=== PATIENT | female | born 1955 | race African-American/Black ===

== ENCOUNTER 2019-01-05 10:37 | Emergency (ER) | payer MEDICARE, OTHER ==
[~2019-01-05] VITALS: Ht 157.5 cm; Wt 63.6 kg
[~2019-01-05 10:37] MED LIST: AMLO-511 PO; ASPI-556 PO; FOLI0.4T91 PO; HYDR25CA PO; INSLAN SQ; INSU100C3 SQ; LISI-661 PO; SIMV20TA6 PO; VITAD400 PO; ZIPR80CA2 PO
[2019-01-05 10:54] LABS: GLUCOSE,POINT OF CARE 335 MG/DL (70-110)
[2019-01-05] MEDS ORDERED: CEPHALEXIN MONOHYDRATE 500 MG CAPSULE PO ONE (12:30)
[2019-01-05 13:42] VITALS: BP 145/75
[2019-01-05] MEDS ORDERED: ACETAMINOPHEN 325 MG TABLET PO ONE (13:45)
== END 2019-01-05 14:34 | disposition home or self-care (01) ==
LOC: EMS 10:40
DX: L03.811 Cellulitis of head [any part, except face] (principal); E11.65 Type 2 diabetes mellitus with hyperglycemia; E78.00 Pure hypercholesterolemia, unspecified; I10 Essential (primary) hypertension; J45.909 Unspecified asthma, uncomplicated; M19.90 Unspecified osteoarthritis, unspecified site; F20.9 Schizophrenia, unspecified; F17.210 Nicotine dependence, cigarettes, uncomplicated; F12.90 Cannabis use, unspecified, uncomplicated; Z86.19 Personal history of other infectious and parasitic diseases; Z90.710 Acquired absence of both cervix and uterus; Z79.899 Other long term (current) drug therapy

== ENCOUNTER 2019-01-20 11:38 | Emergency (ER) | payer MEDICARE, OTHER ==
[~2019-01-20] VITALS: Ht 157.5 cm; Wt 68.2 kg
[~2019-01-20 11:38] MED LIST changes: -LISI-661 PO
[2019-01-20 12:05] LABS: GLUCOSE,POINT OF CARE 223 MG/DL (70-110)
[2019-01-20 12:50] VITALS: BP 142/97
== END 2019-01-20 13:33 | disposition home or self-care (01) ==
LOC: EMS 11:43
DX: L98.9 Disorder of the skin and subcutaneous tissue, unspecified (principal); I10 Essential (primary) hypertension; E11.9 Type 2 diabetes mellitus without complications; E78.00 Pure hypercholesterolemia, unspecified; M19.90 Unspecified osteoarthritis, unspecified site; F12.90 Cannabis use, unspecified, uncomplicated; F17.210 Nicotine dependence, cigarettes, uncomplicated; F20.9 Schizophrenia, unspecified; Z86.19 Personal history of other infectious and parasitic diseases; Z90.710 Acquired absence of both cervix and uterus; Z79.899 Other long term (current) drug therapy; Z79.4 Long term (current) use of insulin; Z79.82 Long term (current) use of aspirin

== ENCOUNTER 2019-08-28 09:12 | Emergency (ER) | payer MEDICARE, OTHER ==
[~2019-08-28] VITALS: Ht 157.5 cm; Wt 59.1 kg
[~2019-08-28 09:12] MED LIST changes: -AMLO-511 PO; +AMLO10TA7 PO; +AMLO5TAB9 PO; +ASPI81TA40 PO; +CHOL400T56 PO; +FOLI1 PO; +GEMF600T89 PO; +INSU100V SQ; +LEVAHFA IH; +OMEP20 PO; +POTA10TA14 PO; +SIMV-260 PO; +SIMV-43 PO; -SIMV20TA6 PO; +SITA100 PO; -VITAD400 PO
[2019-08-28 09:28] LABS: GLUCOSE,POINT OF CARE 274 MG/DL (70-110)
[2019-08-28] MEDS ORDERED: KETOROLAC TROMETHAMINE 30 MG/ML VIAL IM ONE (12:00)
[2019-08-28] MEDS ORDERED: TRAZ-252 PO (12:05)
[2019-08-28] MEDS ORDERED: LISI-618 PO (12:05)
[2019-08-28] MEDS ORDERED: DULA0.75 SQ (12:05)
[2019-08-28] MEDS ORDERED: INSU100V SQ (12:05)
[2019-08-28] MEDS ORDERED: IPRA4AER IH (12:05)
[2019-08-28] MEDS ORDERED: BUSP5TAB20 PO (12:05)
[2019-08-28] MEDS ORDERED: METO-558 PO (12:05)
[2019-08-28] MEDS ORDERED: KDUR10 PO (12:05)
[2019-08-28 12:26] VITALS: BP 136/86
== END 2019-08-28 12:30 | disposition home or self-care (01) ==
LOC: EMS 09:17
DX: L02.811 Cutaneous abscess of head [any part, except face] (principal); I12.0 Hypertensive chronic kidney disease with stage 5 chronic kidney disease or end stage renal disease; E11.22 Type 2 diabetes mellitus with diabetic chronic kidney disease; N18.6 End stage renal disease; J45.909 Unspecified asthma, uncomplicated; E78.00 Pure hypercholesterolemia, unspecified; F17.210 Nicotine dependence, cigarettes, uncomplicated; F12.90 Cannabis use, unspecified, uncomplicated; F20.9 Schizophrenia, unspecified; Z99.2 Dependence on renal dialysis; Z90.710 Acquired absence of both cervix and uterus; Z79.82 Long term (current) use of aspirin; Z79.4 Long term (current) use of insulin
CPT/HCPCS: 82962; 96372; 99284; J1885

== ENCOUNTER 2020-01-22 18:09 | Inpatient (IN) | payer MEDICARE, MEDICAID ==
[~2020-01-22] VITALS: Ht 170.2 cm; Wt 59.4 kg
[~2020-01-22 18:09] MED LIST changes: -AMLO5TAB9 PO; +ASPI-1111 PO; -ASPI-556 PO; -ASPI81TA40 PO; +BUSP5TAB20 PO; -CHOL400T56 PO; +DULA0.75 SQ; +FOLI-130 PO; -FOLI0.4T91 PO; -FOLI1 PO; -GEMF600T89 PO; -INSU100C3 SQ; +IPRA4AER IH; +LACT30L PO; -LEVAHFA IH; +LISI-618 PO; +METO-558 PO; +MULT-1203 PO; -POTA10TA14 PO; +RIFAX550 PO; +SEVE800T17 PO; -SIMV-260 PO; -SITA100 PO; +THIA100T80 PO; +TRAZ-252 PO
[2020-01-22 19:51] LABS: BASOPHILS % (AUTO) 1.1 % (0.0-2.0); EOSINOPHILS % (AUTO) 1.5 % (1.0-6.0); HEMATOCRIT 37.5 % (36-46); LYMPHOCYTES % (AUTO) 11.1 % (22.0-44.0); MEAN CORPUSCULAR HEMOGLOBIN 32.3 pg (26.0-34.0); MEAN CORPUSCULAR HGB CONC 32.2 G/dL (31.0-37.0); MEAN CORPUSCULAR VOLUME 101 fL (80-100); MONOCYTES # (AUTO) 0.4 K/uL (0.1-1.0); MONOCYTES % (AUTO) 4.1 % (2.0-9.0); NEUTROPHILS # (AUTO) 7.8 K/uL (1.8-7.7); NEUTROPHILS % (AUTO) 82.2 % (40.0-70.0); PLATELET COUNT (AUTO) 267 K/uL (150-450); RED BLOOD CELL COUNT(AUTO) 3.73 MIL/uL (4.00-5.20); RED CELL DISTRIBUTION WIDTH 15.9 % (11.5-14.5)
[2020-01-22 19:56] LABS: ANION GAP 11 mmol/L (8-16); CALCIUM, TOTAL 9.1 mg/dL (8.8-10.5); CARBON DIOXIDE 26 mmol/L (22-29); CHLORIDE 94 mmol/L (98-107); CREATININE 6.46 mg/dL (0.60-1.30); GLOMERULAR FILTR. RATE CALC 8 mL/min (>60); GLUCOSE,RANDOM 264 mg/dL (70-110); POTASSIUM 5.8 mmol/L (3.5-5.1); SODIUM SERUM 131 mmol/L (136-145); UREA NITROGEN, BLOOD 59 mg/dL (7-18)
[2020-01-22 19:59] LABS: INR 1.1 (0.9-1.1); PROTHROMBIN TIME 10.9 SEC (9.4-11.6)
[2020-01-22 20:10] LABS: AMMONIA 30 umol/L (11-32); TROPONIN I < 0.02 ng/mL (0.00-0.05)
[2020-01-22 20:11] LABS: ALANINE AMINOTRANSFERASE 173 U/L (12-78); ALBUMIN 3.6 g/dL (3.4-5.0); ALKALINE PHOSPHATASE 153 U/L (46-116); ASPARTATE AMINOTRANSFERASE 209 U/L (15-37); BILIRUBIN,TOTAL 0.6 mg/dL (0.1-1.0); FREE T4 (FREE THYROXINE) 0.95 ng/dL (0.76-1.46); THYROID STIMULATING HORMONE 0.71 uIU/mL (0.36-3.74); TOTAL PROTEIN, SERUM 8.2 g/dL (6.4-8.2)
[2020-01-22] MEDS ORDERED: SODIUM POLYSTYRENE SULFONATE 15 GM/60 ML SUSPENSION BOTTLE PO ONE (20:15)
[2020-01-22 21:11] LABS: GLUCOSE,POINT OF CARE 203 MG/DL (70-110)
[2020-01-22] MEDS ORDERED: QUEtiapine FUMARATE 100 MG TABLET PO PRN (22:15)
[2020-01-22] MEDS ORDERED: ZOLPIDEM TARTRATE 10 MG TABLET PO PRN (22:15)
[2020-01-22] MEDS ORDERED: LORazepam 2 MG TABLET PO PRN (22:15)
[2020-01-22] MEDS ORDERED: CloNIDine HCL 0.1 MG TABLET PO PRN (22:30)
[2020-01-22] MEDS ORDERED: MAG HYDROX/AL HYDROX/SIMETH ES 30 ML SUSPENSION UDCUP PO PRN (22:30)
[2020-01-22] MEDS ORDERED: NICOTINE 14 MG/24 HOUR PATCH TD PRN (22:30)
[2020-01-22] MEDS ORDERED: IBUPROFEN 400 MG TABLET PO PRN (22:30)
[2020-01-22] MEDS ORDERED: DOCUSATE SODIUM 100 MG CAPSULE PO PRN (22:30)
[2020-01-22] MEDS ORDERED: LACTULOSE 20 GM/30 ML SOLUTION UDCUP PO PRN (22:30)
[2020-01-22] MEDS ORDERED: MAGNESIUM HYDROXIDE SUSPENSION 30 ML UDCUP PO PRN (22:30)
[2020-01-22] MEDS ORDERED: LOPERAMIDE HCL 2 MG CAPSULE PO PRN (22:30)
[2020-01-22] MEDS ORDERED: ALBUTEROL SULFATE HFA 90 MCG/PUFF 8 GM INHALER IH PRN (22:30)
[2020-01-22] MEDS ORDERED: ONDANSETRON HCL 4 MG TABLET PO PRN (22:30)
[2020-01-22] MEDS ORDERED: GuaiFENesin/D-METHORPHAN [SUGAR-FREE] 200-20MG/10 ML SYRUP UDCUP PO PRN (22:30)
[2020-01-22] MEDS ORDERED: PETROLATUM,WHITE 28 GM JELLY TP PRN (22:30)
[2020-01-23 02:25] VITALS: BP 189/77
[2020-01-23 02:51] VITALS: BP 189/77
[2020-01-23] MEDS ORDERED: PNEUMOCOCCAL VACCINE POLYVALENT 0.5 ML VIAL [PPSV23] IM ONE (04:45)
[2020-01-23 06:01] LABS: GLUCOMETER DEV NAME(LOC) 3E.I 2; GLUCOSE,POINT OF CARE 304 MG/DL (70-110)
[2020-01-23 06:15] VITALS: BP 146/65
[2020-01-23] MEDS: SEVELAMER CARBONATE 800 MG TABLET PO SCH ×3 (07:01→17:24)
[2020-01-23 08:53] VITALS: BP_SYST 90
[2020-01-23] MEDS: RIFAXIMIN 550 MG TABLET PO SCH ×2 (10:56→17:24)
[2020-01-23] MEDS: THIAMINE 100 MG TABLET PO SCH (10:57)
[2020-01-23] MEDS: OMEPRAZOLE 20 MG CAPSULE PO SCH ×2 (10:57→17:25)
[2020-01-23] MEDS: FOLIC ACID 1 MG TABLET PO SCH (10:57)
[2020-01-23] MEDS: SIMVASTATIN 20 MG TABLET PO SCH (10:57)
[2020-01-23] MEDS: AmLODIPine BESYLATE 10 MG TABLET PO SCH (10:57)
[2020-01-23] MEDS: LISINOPRIL 20 MG TABLET PO SCH ×2 (10:59→17:25)
[2020-01-23] MEDS: ASPIRIN 81 MG EC TABLET PO SCH (11:02)
[2020-01-23] MEDS ORDERED: LORazepam 2 MG/ML VIAL IVP ONE (13:30)
[2020-01-23 16:00] VITALS: BP 150/69
[2020-01-23] MEDS: BREXPIPRAZOLE 1 MG TABLET PO SCH (17:26)
[2020-01-23] MEDS: BusPIRone HCL 15 MG TABLET PO SCH (17:26)
[2020-01-23] MEDS ORDERED: LIDOCAINE/PF 1% 2 ML VIAL ONE (18:22)
[2020-01-23] MEDS ORDERED: DEXTROSE 50%-WATER 25 GM/50 ML SYRINGE IVP PRN (19:45)
[2020-01-23] MEDS: METOPROLOL SUCCINATE 50 MG ER TABLET PO SCH (20:55)
[2020-01-23] MEDS: TraZODone HCL 50 MG TABLET PO SCH (20:55)
[2020-01-23] MEDS: ACETAMINOPHEN 325 MG TABLET PO PRN ×2 (21:06→21:12)
[2020-01-23] MEDS: INSULIN LISPRO 100 UNITS/ML SQ PRN (21:07)
[2020-01-23] MEDS: INSULIN GLARGINE,HUM.REC.ANLOG 100 UNITS/ML SQ SCH (21:07)
[2020-01-23 21:14] LABS: GLUCOMETER DEV NAME(LOC) 3E.I 2; GLUCOSE,POINT OF CARE 279 MG/DL (70-110)
[2020-01-24 05:39] LABS: GLUCOMETER DEV NAME(LOC) 3E.I 2; GLUCOSE,POINT OF CARE 67 MG/DL (70-110)
[2020-01-24 05:57] LABS: GLUCOMETER DEV NAME(LOC) 3E.I 2; GLUCOSE,POINT OF CARE 82 MG/DL (70-110)
[2020-01-24] MEDS: SEVELAMER CARBONATE 800 MG TABLET PO SCH ×3 (06:35→16:26)
[2020-01-24 08:42] VITALS: BP 147/59
[2020-01-24] MEDS ORDERED: IBUPROFEN 400 MG TABLET PO PRN (09:15)
[2020-01-24] MEDS ORDERED: ACETAMINOPHEN 325 MG TABLET PO PRN (09:15)
[2020-01-24] MEDS: AmLODIPine BESYLATE 10 MG TABLET PO SCH (10:58)
[2020-01-24] MEDS: FOLIC ACID 1 MG TABLET PO SCH (10:58)
[2020-01-24] MEDS: LISINOPRIL 20 MG TABLET PO SCH ×2 (10:58→16:26)
[2020-01-24] MEDS: SIMVASTATIN 20 MG TABLET PO SCH (10:58)
[2020-01-24] MEDS: BREXPIPRAZOLE 1 MG TABLET PO SCH (10:58)
[2020-01-24] MEDS: RIFAXIMIN 550 MG TABLET PO SCH ×2 (10:58→16:26)
[2020-01-24] MEDS: ASPIRIN 81 MG EC TABLET PO SCH (10:58)
[2020-01-24] MEDS: THIAMINE 100 MG TABLET PO SCH (10:58)
[2020-01-24] MEDS: VITAMIN B COMP/VIT C/FOLIC ACID CAPSULE PO SCH (10:59)
[2020-01-24] MEDS: OMEPRAZOLE 20 MG CAPSULE PO SCH ×2 (11:02→16:26)
[2020-01-24] MEDS: TraMADol HCL 50 MG TABLET PO PRN (11:02)
[2020-01-24] MEDS: BusPIRone HCL 15 MG TABLET PO SCH ×2 (11:03→16:26)
[2020-01-24 11:58] LABS: GLUCOMETER DEV NAME(LOC) 3E.I 2; GLUCOSE,POINT OF CARE 158 MG/DL (70-110)
[2020-01-24] MEDS: INSULIN LISPRO 100 UNITS/ML SQ PRN (12:34)
[2020-01-24 16:20] VITALS: BP 148/60
[2020-01-24 17:08] VITALS: BP 142/55
[2020-01-24 17:26] LABS: GLUCOMETER DEV NAME(LOC) 3E.I 2; GLUCOSE,POINT OF CARE 90 MG/DL (70-110)
[2020-01-24 17:26] LABS: GLUCOMETER DEV NAME(LOC) 3E.I 2; GLUCOSE,POINT OF CARE 66 MG/DL (70-110)
[2020-01-24] MEDS: TraZODone HCL 50 MG TABLET PO SCH (21:06)
[2020-01-24 21:10] VITALS: BP 145/63
[2020-01-24] MEDS: METOPROLOL SUCCINATE 50 MG ER TABLET PO SCH (21:13)
[2020-01-24] MEDS: INSULIN GLARGINE,HUM.REC.ANLOG 100 UNITS/ML SQ SCH (21:17)
[2020-01-24 21:34] LABS: GLUCOMETER DEV NAME(LOC) 3E.I 2; GLUCOSE,POINT OF CARE 121 MG/DL (70-110)
[2020-01-25 06:11] LABS: GLUCOMETER DEV NAME(LOC) 3E.I 2; GLUCOSE,POINT OF CARE 45 MG/DL (70-110)
[2020-01-25 06:24] LABS: GLUCOMETER DEV NAME(LOC) 3E.I 2; GLUCOSE,POINT OF CARE 64 MG/DL (70-110)
[2020-01-25] MEDS: TraMADol HCL 50 MG TABLET PO PRN (06:38)
[2020-01-25] MEDS: SEVELAMER CARBONATE 800 MG TABLET PO SCH ×3 (06:38→20:20)
[2020-01-25 06:59] LABS: GLUCOMETER DEV NAME(LOC) 3E.I 2; GLUCOSE,POINT OF CARE 115 MG/DL (70-110)
[2020-01-25 08:54] VITALS: BP 169/84
[2020-01-25 09:54] LABS: CALCIUM, TOTAL 8.6 mg/dL (8.8-10.5); CREATININE 5.07 mg/dL (0.60-1.30); PHOSPHORUS 5.7 mg/dL (2.5-4.9); POTASSIUM 4.5 mmol/L (3.5-5.1); THYROID STIMULATING HORMONE 0.8 uIU/mL (0.36-3.74)
[2020-01-25] MEDS: LISINOPRIL 20 MG TABLET PO SCH ×2 (15:04→20:20)
[2020-01-25] MEDS: BREXPIPRAZOLE 1 MG TABLET PO SCH (15:04)
[2020-01-25] MEDS: AmLODIPine BESYLATE 10 MG TABLET PO SCH (15:04)
[2020-01-25] MEDS: FOLIC ACID 1 MG TABLET PO SCH (15:04)
[2020-01-25] MEDS: ASPIRIN 81 MG EC TABLET PO SCH (15:05)
[2020-01-25] MEDS: SIMVASTATIN 20 MG TABLET PO SCH (15:05)
[2020-01-25] MEDS: OMEPRAZOLE 20 MG CAPSULE PO SCH ×2 (15:05→20:19)
[2020-01-25] MEDS: BusPIRone HCL 15 MG TABLET PO SCH ×2 (15:05→20:24)
[2020-01-25] MEDS: RIFAXIMIN 550 MG TABLET PO SCH ×2 (15:05→20:20)
[2020-01-25] MEDS: THIAMINE 100 MG TABLET PO SCH (15:06)
[2020-01-25] MEDS: VITAMIN B COMP/VIT C/FOLIC ACID CAPSULE PO SCH (15:07)
[2020-01-25 17:00] VITALS: BP 124/87
[2020-01-25] MEDS: TraZODone HCL 50 MG TABLET PO SCH (21:00)
[2020-01-25] MEDS: METOPROLOL SUCCINATE 50 MG ER TABLET PO SCH (21:00)
[2020-01-25] MEDS: INSULIN GLARGINE,HUM.REC.ANLOG 100 UNITS/ML SQ SCH (21:00)
[2020-01-26 05:37] LABS: GLUCOMETER DEV NAME(LOC) 3E.I 2; GLUCOSE,POINT OF CARE 210 MG/DL (70-110)
[2020-01-26] MEDS: SEVELAMER CARBONATE 800 MG TABLET PO SCH ×3 (07:01→17:26)
[2020-01-26] MEDS: INSULIN LISPRO 100 UNITS/ML SQ PRN ×2 (07:10→17:29)
[2020-01-26] MEDS: THIAMINE 100 MG TABLET PO SCH (08:38)
[2020-01-26] MEDS: AmLODIPine BESYLATE 10 MG TABLET PO SCH (08:38)
[2020-01-26] MEDS: ASPIRIN 81 MG EC TABLET PO SCH (08:38)
[2020-01-26] MEDS: FOLIC ACID 1 MG TABLET PO SCH (08:38)
[2020-01-26] MEDS: RIFAXIMIN 550 MG TABLET PO SCH ×2 (08:38→16:54)
[2020-01-26] MEDS: VITAMIN B COMP/VIT C/FOLIC ACID CAPSULE PO SCH (08:38)
[2020-01-26] MEDS: LISINOPRIL 20 MG TABLET PO SCH ×2 (08:38→16:54)
[2020-01-26] MEDS: BusPIRone HCL 15 MG TABLET PO SCH ×2 (08:39→16:54)
[2020-01-26] MEDS: BREXPIPRAZOLE 1 MG TABLET PO SCH (08:39)
[2020-01-26] MEDS: SIMVASTATIN 20 MG TABLET PO SCH (08:39)
[2020-01-26] MEDS: OMEPRAZOLE 20 MG CAPSULE PO SCH ×2 (08:39→16:54)
[2020-01-26 09:21] VITALS: BP 140/84
[2020-01-26 11:24] VITALS: BP 139/86
[2020-01-26] MEDS: TraMADol HCL 50 MG TABLET PO PRN (11:24)
[2020-01-26 11:32] LABS: GLUCOMETER DEV NAME(LOC) 3E.I 2; GLUCOSE,POINT OF CARE 127 MG/DL (70-110)
[2020-01-26 17:20] LABS: GLUCOMETER DEV NAME(LOC) 3E.I 2; GLUCOSE,POINT OF CARE 214 MG/DL (70-110)
[2020-01-26 18:42] VITALS: BP 154/67
[2020-01-26] MEDS: TraZODone HCL 50 MG TABLET PO SCH (20:03)
[2020-01-26] MEDS: METOPROLOL SUCCINATE 50 MG ER TABLET PO SCH (20:04)
[2020-01-26] MEDS: INSULIN GLARGINE,HUM.REC.ANLOG 100 UNITS/ML SQ SCH (21:00)
[2020-01-26 21:49] LABS: GLUCOMETER DEV NAME(LOC) 3E.I 2; GLUCOSE,POINT OF CARE 134 MG/DL (70-110)
[2020-01-27] MEDS: TraMADol HCL 50 MG TABLET PO PRN (05:09)
[2020-01-27 05:10] VITALS: BP 159/71
[2020-01-27] MEDS: SEVELAMER CARBONATE 800 MG TABLET PO SCH ×3 (06:36→17:30)
[2020-01-27] MEDS: INSULIN LISPRO 100 UNITS/ML SQ PRN ×2 (06:38→13:10)
[2020-01-27 08:50] VITALS: BP 165/85
[2020-01-27] MEDS: LISINOPRIL 20 MG TABLET PO SCH ×2 (09:00→19:24)
[2020-01-27] MEDS: SIMVASTATIN 20 MG TABLET PO SCH (09:00)
[2020-01-27] MEDS: AmLODIPine BESYLATE 10 MG TABLET PO SCH (09:00)
[2020-01-27] MEDS: THIAMINE 100 MG TABLET PO SCH (09:00)
[2020-01-27] MEDS: BusPIRone HCL 15 MG TABLET PO SCH ×2 (09:00→17:00)
[2020-01-27] MEDS: VITAMIN B COMP/VIT C/FOLIC ACID CAPSULE PO SCH (09:00)
[2020-01-27] MEDS: RIFAXIMIN 550 MG TABLET PO SCH ×2 (09:00→17:00)
[2020-01-27] MEDS: BREXPIPRAZOLE 1 MG TABLET PO SCH (09:00)
[2020-01-27] MEDS: ASPIRIN 81 MG EC TABLET PO SCH (09:00)
[2020-01-27] MEDS: FOLIC ACID 1 MG TABLET PO SCH (09:00)
[2020-01-27] MEDS: OMEPRAZOLE 20 MG CAPSULE PO SCH ×2 (09:00→17:00)
[2020-01-27 12:55] LABS: GLUCOMETER DEV NAME(LOC) 3E.I 2; GLUCOSE,POINT OF CARE 220 MG/DL (70-110)
[2020-01-27] MEDS ORDERED: BREX1TAB PO (15:03)
[2020-01-27] MEDS ORDERED: TRAZ-252 PO (15:03)
[2020-01-27] MEDS ORDERED: BUSP15 PO (15:03)
[2020-01-27 19:32] VITALS: BP 140/80
== END 2020-01-27 20:30 | disposition home or self-care (01) | DRG 885 ==
LOC: EMS 18:10 → 3EI 22:11
DX: F20.0 Paranoid schizophrenia (principal); N18.6 End stage renal disease; B19.20 Unspecified viral hepatitis C without hepatic coma; E11.65 Type 2 diabetes mellitus with hyperglycemia; I12.0 Hypertensive chronic kidney disease with stage 5 chronic kidney disease or end stage renal disease; E87.1 Hypo-osmolality and hyponatremia; E11.22 Type 2 diabetes mellitus with diabetic chronic kidney disease; E78.00 Pure hypercholesterolemia, unspecified; E11.649 Type 2 diabetes mellitus with hypoglycemia without coma; E78.5 Hyperlipidemia, unspecified; D63.1 Anemia in chronic kidney disease; E87.5 Hyperkalemia; F17.210 Nicotine dependence, cigarettes, uncomplicated; M19.90 Unspecified osteoarthritis, unspecified site; J44.9 Chronic obstructive pulmonary disease, unspecified; K29.60 Other gastritis without bleeding; Z79.899 Other long term (current) drug therapy; Z90.710 Acquired absence of both cervix and uterus; Z99.2 Dependence on renal dialysis
CPT/HCPCS: 84100; 84132; 84439; 84443; 87081; 87340; 90732; 93005; G0480; J1815; J2060; J3490